=== PATIENT | male | born 1980 | race Caucasian/White ===

== ENCOUNTER 2020-03-19 16:17 | Emergency (ER) | payer BC ==
--- NOTE | 2020-03-19 16:46 | ER Document Report ---
ED Medical Screen (RME) - General Stated Complaint: SEVERE HEAD PAIN Time Seen by Provider: 03/19/20 16:42 Primary Care Provider: JESSICA CALVO MD [Primary Care Provider] - Follow up as needed Mode of Arrival: Ambulatory Information source: Patient Notes: HPI; 39 male presents emergency room complaining of a severe headache that started 3 days ago. States it came on suddenly denies any sudden thunderclap, denies any photophobia, no history of headaches. No history of migraines. Denies any head trauma or head injury. States is able to take Motrin which alleviates his pain. Currently pain-free. Concerned as his mom recently had a brain aneurysm. PE: Alert and oriented x3. Mild distress noted.PERRLA, EOMI neurovascular intact I have greeted and performed a rapid initial assessment of this patient. A comprehensive ED assessment and evaluation of the patient, analysis of test results and completion of the medical decision making process will be conducted by additional ED providers. I have specifically instructed the patient or family members with the patient to immediately return to any nursing staff should anything change in the patient's condition or with their chief complaint. Physical Exam - Vital signs Vitals: Temp Pulse Resp BP Pulse Ox 98.8 F 56 L 16 145/74 H 98 03/19/20 16:23 03/19/20 16:23 03/19/20 16:23 03/19/20 16:23 03/19/20 16:23 Course - Vital Signs Vital signs: Temp Pulse Resp BP Pulse Ox 98.8 F 56 L 16 145/74 H 98 03/19/20 16:23 03/19/20 16:23 03/19/20 16:23 03/19/20 16:23 03/19/20 16:23 Doctor's Discharge - Discharge Referrals: JESSICA CALVO MD [Primary Care Provider] - Follow up as needed
--- NOTE | 2020-03-19 17:47 | RADIOLOGY REPORT (SQ) ---
EXAM DESCRIPTION: CT HEAD WITHOUT IMAGES COMPLETED DATE/TIME: 03/19/2020 5:08 pm REASON FOR STUDY: headache COMPARISON: None. TECHNIQUE: Axial images acquired through the brain without intravenous contrast. Images reviewed wi th bone, brain and subdural windows. Additional sagittal and coronal reconstructions were generated. Images stored on PACS. All CT scanners at this facility use dose modulation, iterative reconstruction, and/or weight based d osing when appropriate to reduce radiation dose to as low as reasonably achievable (ALARA). [facility]: Dose Right [facility]: CareDose [facility]: Dose Right [facility]: Teradose 4D [facility]: Sparkfly RADIATION DOSE: CT Rad equipment meets quality standard of care and radiation dose reduction techniq ues were employed. CTDIvol: 53.2 mGy. DLP: 991 mGy-cm. LIMITATIONS: None. FINDINGS: VENTRICLES: Normal size and contour. The cisterns are patent. CEREBRUM: No masses. No hemorrhage. No midline shift. No evidence for acute infarction. Normal gra y/white matter differentiation. No areas of low density in the white matter. CEREBELLUM: No masses. No hemorrhage. No alteration of density. No evidence for acute infarction. EXTRAAXIAL SPACES: No fluid collections. No masses. ORBITS AND GLOBE: No intra- or extraconal masses. Normal contour of globe without masses. CALVARIUM: No fracture. PARANASAL SINUSES: No fluid or mucosal thickening. SOFT TISSUES: No mass or hematoma. OTHER: No other significant finding. IMPRESSION: 1. No acute intracranial abnormality. EVIDENCE OF ACUTE STROKE: NO. COMMENT: Quality ID # [id number]: Final reports with documentation of one or more dose reduction techniques (e.g., Automated exposure control, adjustment of the mA and/or kV according to patient size, use of iterative reconstruction technique) TECHNICAL DOCUMENTATION: JOB ID: [id number] 2010 [employer]- All Rights Reserved Reading location - IP/workstation name: [email or web address]
[2020-03-19 20:34] VITALS: BP 129/73
== END 2020-03-19 20:50 | disposition left against medical advice (07) ==
LOC: ER 16:17
DX: R51 Headache (principal); Z53.20 Procedure and treatment not carried out because of patient's decision for unspecified reasons
CPT/HCPCS: 70450; 99281